=== PATIENT | female | born 1975 | race Caucasian/White ===

== ENCOUNTER 2021-06-09 00:35 | Emergency (ER) | payer MEDICAID ==
[~2021-06-09] VITALS: Ht 154.9 cm; Wt 68.0 kg
--- NOTE | 2021-06-09 00:54 | NUR ---
PT TAKEN TO BED 1
[2021-06-09 00:58] VITALS: BP 134/100
--- NOTE | 2021-06-09 00:58 | NUR ---
TO BED AMBULATORY
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
--- NOTE | 2021-06-09 03:01 | NUR ---
PT IS SITTING UP IN CHAIR, IN STABLE CONDITION. ALL NEEDS MET AT THIS TIME.
[2021-06-09 04:52] VITALS: BP 159/89
--- NOTE | 2021-06-09 04:52 | NUR ---
Patient discharged with v/s stable. Written and verbal after care instructions given and explained. Patient verbalized understanding. Ambulatory with steady gait. All questions addressed prior to discharge. Advised to follow up with PMD.
== END 2021-06-09 04:52 | disposition home or self-care (01) ==
LOC: MED 00:35
DX: S00.03XA Contusion of scalp, initial encounter (principal); Y04.2XXA Assault by strike against or bumped into by another person, initial encounter; Y93.89 Activity, other specified; Y92.89 Other specified places as the place of occurrence of the external cause; Y99.8 Other external cause status
CPT/HCPCS: 70450; 99284

== ENCOUNTER 2022-04-22 09:31 | Emergency (ER) | payer SELFPAY ==
[~2022-04-22] VITALS: Ht 152.4 cm; Wt 63.5 kg
[2022-04-22 09:33] VITALS: BP 127/90
[2022-04-22] MEDS ORDERED: IBUPROFEN 600 MG TAB PO ONE (10:05)
[2022-04-22] MEDS ORDERED: ACETAMINOPHEN EXTRA STRENGTH 500 MG TAB PO ONE (10:05)
--- NOTE | 2022-04-22 10:20 | NUR ---
PT C/O RIGHT SHOULDER AND RIGHT ARM PAIN WITH SWELLING S/P MODERNA VACCINE YESTERDAY.
[2022-04-22 10:29] LABS: BASOPHILS % (AUTO) 0.8 % (0.0-2.0); EOSINOPHILS # (AUTO) 0.1 K/uL (0-0.4); EOSINOPHILS % (AUTO) 1.8 % (0.0-4.0); HEMATOCRIT 40.6 % (36-48); HEMOGLOBIN 13.9 g/dL (12.0-16.0); LYMPHOCYTES # (AUTO) 1.6 K/uL (2.5-16.5); LYMPHOCYTES % (AUTO) 26.7 % (20.5-51.1); MEAN CORPUSCULAR HEMOGLOBIN 30 pg (27-31); MEAN CORPUSCULAR HGB CONC 34 g/dL (33-37); MEAN CORPUSCULAR VOLUME 87.8 fL (80-94); MONOCYTES # (AUTO) 0.6 K/uL (0.8-1.0); MONOCYTES % (AUTO) 10.1 % (1.7-9.3); NEUTROPHILS # (AUTO) 3.6 K/uL (1.8-7.7); NEUTROPHILS % (AUTO) 60.6 % (42.2-75.2); PLATELET COUNT (AUTO) 202 K/uL (140-450); RED BLOOD CELL COUNT(AUTO) 4.63 MIL/uL (4.20-5.40); RED CELL DISTRIBUTION WIDTH 13.7 % (11.6-13.7); WHITE BLOOD COUNT (AUTO) 5.9 K/uL (4.8-10.8)
[2022-04-22 10:53] LABS: ALBUMIN 3.1 g/dL (3.4-5.0); ANION GAP 11.2 (8-16); CARBON DIOXIDE 26.8 mmol/L (21-32); CREATININE 0.6 mg/dL (0.6-1.3); TOTAL BILIRUBIN 0.3 mg/dL (0.0-1.0)
[2022-04-22] MEDS ORDERED: CEPH-588 PO (12:38)
[2022-04-22 12:40] VITALS: BP 123/68
--- NOTE | 2022-04-22 12:40 | NUR ---
PT RESTING IN [facility] PENDING DISPO. NAD
== END 2022-04-22 12:47 | disposition home or self-care (01) ==
LOC: MED 09:31
DX: L03.113 Cellulitis of right upper limb (principal); Z79.2 Long term (current) use of antibiotics
CPT/HCPCS: 36415; 80053; 85025; 85379; 93971; 99284; Q0092; 99285